=== PATIENT | male | born 1955 | race American Indian/Alaskan Native ===

== ENCOUNTER 2019-06-10 22:05 | Emergency (ER) | payer MEDICARE ==
--- NOTE | 2019-06-10 23:21 | XRay Report ---
CERVICAL SPINE 5 VIEWS INDICATION / CLINICAL INFORMATION: neck pain that radiates down right arm. COMPARISON: None available. FINDINGS: VERTEBRAE: No fracture. No significant malalignment. DISC SPACES:Moderate discogenic degenerative disease C3-7 PREVERTEBRAL SOFT TISSUES:No significant abnormality. ADDITIONAL FINDINGS: None. IMPRESSION: 1. No significant abnormality. 2. Moderate discogenic degenerative disease C3-7 Signer Name: Alessandro Tello MD Signed: 06/10/2019 11:17 PM Workstation Name: [id number]
--- NOTE | 2019-06-11 01:36 | Emergency Department Report ---
ED Fall HPI - General Chief Complaint: Fall Stated Complaint: RT SIDE BODY PAIN BACK /NECK ARM PAIN Time Seen by Provider: 06/11/19 01:09 Source: patient Mode of arrival: Ambulatory - History of Present Illness Initial Comments: 63-year-old -[place] male presents to the emergency room stating he has fallen 3 times at 3 AM. Patient states that he took some sleeping pills and had to rest to the bathroom. Patient states he fell over some objects in his floor. Patient complains of right neck and shoulder and upper back pain. Patient reports he has a history of herniated bulging disc, has had back surgery and neck surgery. MD Complaint: fall -: Last night Fall From: standing Place Fall Occurred: home Loss of Consciousness: none Prolonged Down Time?: no Symptoms Prior to Fall: none Location: neck, back Location - Extremities: Right: Shoulder Context: tripped/slipped Associated Symptoms: neck pain - Related Data Previous Rx's Medication Instructions Recorded Last Taken Type Meloxicam [Mobic] 7.5 mg PO QDAY #15 tablet 06/11/19 Unknown Rx Allergies Allergy/AdvReac Type Severity Reaction Status Date / Time No Known Allergies Allergy Verified 06/10/19 22:14 ED Review of Systems ROS: Stated complaint: RT SIDE BODY PAIN BACK /NECK ARM PAIN Other details as noted in HPI Comment: All other systems reviewed and negative ED Past Medical Hx - Past Medical History Previous Medical History?: Yes Hx Renal Disease: (kidney stones) Additional medical history: heniated/bulging discs - Surgical History Past Surgical History?: Yes Additional Surgical History: back surgery, neck surgery, lithostripsy - Social History Smoking Status: Never Smoker Substance Use Type: None - Medications Home Medications: Home Medications Medication Instructions Recorded Confirmed Last Taken Type Meloxicam [Mobic] 7.5 mg PO QDAY #15 tablet 06/11/19 Unknown Rx ED Physical Exam - General Limitations: No Limitations General appearance: alert, in no apparent distress - Head Head exam: Present: atraumatic, normocephalic - Eye Eye exam: Present: normal appearance - ENT ENT exam: Present: mucous membranes moist ED Course Vital Signs 06/10/19 22:41 Temperature 97.8 F Pulse Rate 94 H Respiratory 18 Rate Blood Pressure 159/88 O2 Sat by Pulse 94 Oximetry ED Medical Decision Making - Radiology Data Radiology results: report reviewed Patient: MATY DIEHL MR#: [id number] : 1955 Acct:[id number] Age/Sex: 63 / M ADM Date: 06/10/19 Loc: ED Attending Dr: Ordering Physician: NIKO LEAL PA-C Date of Service: 06/10/19 Procedure(s): XR spine cervical 2-3V Accession Number(s): [id number] cc: NIKO LEAL PA-C Fluoro Time In Minutes: CERVICAL SPINE 5 VIEWS INDICATION / CLINICAL INFORMATION: neck pain that radiates down right arm. COMPARISON: None available. FINDINGS: VERTEBRAE: No fracture. No significant malalignment. DISC SPACES:Moderate discogenic degenerative disease C3-7 PREVERTEBRAL SOFT TISSUES:No significant abnormality. ADDITIONAL FINDINGS: None. IMPRESSION: 1. No significant abnormality. 2. 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 ED Disposition Clinical Impression: Fall, Shoulder contusion, Cervical myofascial strain, Strain, back Disposition: DC-01 TO HOME OR SELFCARE Is pt being admited?: No Does the pt Need Aspirin: No Condition: Stable Instructions: Muscle Strain (ED), Fall Prevention for Older Adults (ED), Low Back Strain (ED), Cervical Spine Strain (ED) Additional Instructions: Take pain medication as needed. Follow-up orthopedic provider I have listed one below for your convenience. Prescriptions: Meloxicam [Mobic] 7.5 mg PO QDAY #15 tablet Referrals: PRIMARY CARE, [Referring] - 3-5 Days [facility] [Provider Group] - 3-5 Days Forms: Work/School Release Form(ED)
[2019-06-11] MEDS ORDERED: PERCOCET 5/325 PO ONE (02:26)
[2019-06-11 03:01] VITALS: BP 147/78
== END 2019-06-11 03:00 | disposition home or self-care (01) ==
LOC: ED 22:05
DX: S16.1XXA Strain of muscle, fascia and tendon at neck level, initial encounter (principal); S40.011A Contusion of right shoulder, initial encounter; S29.012A Strain of muscle and tendon of back wall of thorax, initial encounter; W01.198A Fall on same level from slipping, tripping and stumbling with subsequent striking against other object, initial encounter; Y93.89 Activity, other specified; Y92.098 Other place in other non-institutional residence as the place of occurrence of the external cause; Y99.8 Other external cause status
CPT/HCPCS: 72040; 99283

== ENCOUNTER 2020-03-17 20:04 | Emergency (ER) | payer MEDICARE ==
[2020-03-18 04:08] VITALS: BP 118/77
[2020-03-18 04:11] LABS: Mean Corpuscular HGB Conc 34 % (32-34); Mean Corpuscular Volume 94 fl (84-94); Platelet Count 272 K/mm3 (140-440); Red Blood Count 3.72 M/mm3 (3.65-5.03); Red Cell Distribution Width 15.8 % (13.2-15.2)
[2020-03-18 04:26] LABS: BUN/Creatinine Ratio 18; Blood Urea Nitrogen 16 mg/dL (9-20); Calcium 10.6 mg/dL (8.4-10.2); Hemolysis Index 61
[2020-03-18 04:43] LABS: Bilirubin,Urine NEG (Negative); Blood,Urine LG (Negative); Color,Urine Amber (Yellow); Mucus,Urine 3+ /HPF; Urobilinogen,Urine < 2.0 mg/dL (<2.0)
--- NOTE | 2020-03-18 05:04 | Emergency Department Report ---
ED General Adult HPI - General Chief complaint: Dyspnea/Respdistress Stated complaint: POSSIBLE UTI Time Seen by Provider: 03/18/20 03:26 Source: patient Mode of arrival: Ambulatory Limitations: No Limitations - History of Present Illness Initial comments: 64-year-old male presents to ED with complaints of abdominal pain, frequent urination, weight loss, and weakness. Patient states he is currently being treated for a UTI states his symptoms are not getting any better. Any fever, cough, shortness of breath, vomiting, diarrhea. -: week(s) (1) Location: abdomen Consistency: constant Improves with: none Worsens with: none Associated Symptoms: loss of appetite, malaise. denies: chest pain, cough, fever/chills, nausea/vomiting, shortness of breath - Related Data Previous Rx's Medication Instructions Recorded Last Taken Type Meloxicam [Mobic] 7.5 mg PO QDAY #15 tablet 06/11/19 Unknown Rx Allergies Allergy/AdvReac Type Severity Reaction Status Date / Time No Known Allergies Allergy Verified 06/10/19 22:14 ED Review of Systems ROS: Stated complaint: POSSIBLE UTI Other details as noted in HPI Comment: All other systems reviewed and negative Constitutional: malaise, weakness. denies: chills, fever Respiratory: denies: cough, shortness of breath Gastrointestinal: abdominal pain. denies: vomiting, diarrhea Genitourinary: frequency ED Past Medical Hx - Past Medical History Hx Renal Disease: (kidney stones) Additional medical history: herniated/bulging discs - Surgical History Additional Surgical History: back surgery, neck surgery, lithostripsy - Social History Smoking Status: Never Smoker Substance Use Type: None - Medications Home Medications: Home Medications Medication Instructions Recorded Confirmed Last Taken Type Meloxicam [Mobic] 7.5 mg PO QDAY #15 tablet 06/11/19 Unknown Rx ED Physical Exam - General Limitations: No Limitations General appearance: alert, in no apparent distress - Head Head exam: Present: atraumatic, normocephalic - Eye Eye exam: Present: normal appearance, EOMI - ENT ENT exam: Present: mucous membranes moist - Neck Neck exam: Present: normal inspection - Respiratory Respiratory exam: Present: normal lung sounds bilaterally. Absent: respiratory distress - Cardiovascular Cardiovascular Exam: Present: regular rate, normal rhythm - GI/Abdominal GI/Abdominal exam: Present: soft. Absent: distended, tenderness - Extremities Exam Extremities exam: Present: normal inspection - Neurological Exam Neurological exam: Present: alert, oriented X3 - Psychiatric Psychiatric exam: Present: normal affect, normal mood - Skin Skin exam: Present: warm, dry, intact, normal color ED Course Vital Signs 03/17/20 03/18/20 21:30 04:07 Temperature 98.5 F 98.8 F Pulse Rate 87 97 H Respiratory 18 18 Rate Blood Pressure 118/77 Blood Pressure 121/80 [Left] O2 Sat by Pulse 97 97 Oximetry ED Medical Decision Making - Lab Data Result diagrams: 03/18/20 03:49 03/18/20 03:49 - Medical Decision Making Patient currently taking Cipro for his UTI. States he has approximately 4 more days left in his prescription. Patient also reports that he has an appointment tomorrow for COVID-19 testing. I do not feel as though patient needs additional antibiotics. There are WBCs and RBCs present in the UA, however no bacteria, nitrites or leukesterase. Vitals are stable, he is afebrile. WBCs are normal. Patient advised to continue his current prescription of Cipro. Patient advised to follow-up with his PCP. Return precautions given. Critical care attestation.: If time is entered above; I have spent that time in minutes in the direct care of this critically ill patient, excluding procedure time. ED Disposition Clinical Impression: UTI (urinary tract infection), General weakness Disposition: - TO HOME OR SELFCARE Is pt being admited?: No Condition: Stable Referrals: NICOLE GALLAGHER MD [Primary Care Provider] - 3-5 Days OLYA TREVINO MD [Staff Physician] - 3-5 Days [facility] [Provider Group] - 3-5 Days Time of Disposition: 05:04
[2020-03-18 06:32] LABS: Basophils % (Manual) 0 % (0.0-1.8); Eosinophils % (Manual) 0 % (0.0-4.3); Total Cells Counted 100
[2020-03-18 06:33] LABS: Platelet Estimate Consistent w Auto
== END 2020-03-18 05:14 | disposition home or self-care (01) ==
LOC: ED 20:04
DX: N39.0 Urinary tract infection, site not specified (principal); R53.1 Weakness; Z98.890 Other specified postprocedural states
CPT/HCPCS: 36415; 80048; 81001; 85007; 85025; 87086; 99283